=== PATIENT | female | born 1990 | race African-American/Black ===

== ENCOUNTER 2019-10-10 17:20 | Emergency (ER) | payer MEDICAID ==
[~2019-10-10] VITALS: Ht 162.6 cm; Wt 80.0 kg
[2019-10-10] MEDS ORDERED: KETOROLAC 30MG/ML VIAL IV STA (17:34)
[2019-10-10] MEDS ORDERED: SODIUM CHLORIDE 0.9% 1,000 ML IV ONE (17:34)
[2019-10-10] MEDS ORDERED: ONDANSETRON HCL 4MG/2ML INJ IV ONE ×2 (17:45→19:15)
[2019-10-10 17:52] LABS: BASOPHILS % 0.8 % (0.0-2.0); EOSINOPHILS % 0.8 % (0.0-5.0); HEMATOCRIT. 34.1 % (36.0-48.0); HEMOGLOBIN. 11.1 g/dL (12.0-16.0); LYMPHOCYTES % 24.8 % (20.0-50.0); MEAN CORPUSCULAR HEMOGLOBIN 24.8 pg (28.0-32.0); MEAN CORPUSCULAR VOLUME 76.1 fL (81.0-99.0); MEAN PLATELET VOLUME 7.3 fl (7.4-10.4); MONOCYTES % 6.7 % (2.0-8.0); NEUTROPHILS % 66.9 % (40.0-76.0); PLATELET 313 x1000/uL (130-400); RED BLOOD CELL COUNT 4.49 mill/uL (4.2-5.4); RED CELL DISTRIBUTION WIDTH 16.4 % (11.6-14.6)
[2019-10-10 17:56] LABS: CHLORIDE 109 mEq/L (98-107)
[2019-10-10 18:01] LABS: CLARITY URINE CLEAR (CLEAR); COLOR URINE YELLOW (YELLOW); KETONES URINE NEGATIVE (NEGATIVE); LEUKOCYTE ESTERASE URINE TRACE (NEGATIVE); NITRITE URINE NEGATIVE (NEGATIVE); OCCULT BLOOD URINE 2+ (NEGATIVE); PROTEIN URINE NEGATIVE (NEGATIVE); SPECIFIC GRAVITY URINE 1.017 (1.005-1.030)
[2019-10-10 18:06] LABS: HCG SCREEN NEGATIVE
[2019-10-10] MEDS ORDERED: MORPHINE SULFATE 2 MG/ML CPJ (NOT FOR IM USE) IV ONE (19:15)
[2019-10-10 20:02] VITALS: BP 121/74
[2019-10-10] MEDS ORDERED: IOHEXOL-300 100 ML BOTTLE ONE (23:26)
== END 2019-10-10 20:17 | disposition home or self-care (01) ==
LOC: ER 17:52
DX: N13.39 Other hydronephrosis (principal); N20.2 Calculus of kidney with calculus of ureter; J45.909 Unspecified asthma, uncomplicated; Z86.73 Personal history of transient ischemic attack (TIA), and cerebral infarction without residual deficits
CPT/HCPCS: 36415; 74177; 80053; 81003; 81025; 83690; 84703; 85025; 87086; 96361; 96374; 96375; 96376; 99285; J1885; J2270; J2405; J7030; Q9967

== ENCOUNTER 2019-12-30 00:19 | Emergency (ER) | payer MEDICAID ==
[~2019-12-30] VITALS: Ht 162.6 cm; Wt 75.8 kg
[2019-12-30] MEDS ORDERED: SODIUM CHLORIDE 0.9% 1,000 ML IV ONE (01:45)
[2019-12-30] MEDS ORDERED: ONDANSETRON HCL 4MG/2ML INJ IV SCH (01:45)
[2019-12-30] MEDS ORDERED: KETOROLAC 30MG/ML VIAL IV SCH (02:00)
[2019-12-30] MEDS ORDERED: MORPHINE SULFATE 4 MG/ML CPJ (NOT FOR IM USE) IV SCH (02:15)
[2019-12-30 02:57] LABS: BASOPHILS % 0.1 % (0.0-2.0); EOSINOPHILS % 0.1 % (0.0-5.0); HEMATOCRIT. 29.6 % (36.0-48.0); HEMOGLOBIN. 9.5 g/dL (12.0-16.0); LYMPHOCYTES % 16.9 % (20.0-50.0); MEAN CORPUSCULAR HEMOGLOBIN 24.3 pg (28.0-32.0); MEAN CORPUSCULAR VOLUME 75.7 fL (81.0-99.0); MEAN PLATELET VOLUME 7.1 fl (7.4-10.4); MONOCYTES % 6.4 % (2.0-8.0); NEUTROPHILS % 76.5 % (40.0-76.0); PLATELET 255 x1000/uL (130-400); RED BLOOD CELL COUNT 3.91 mill/uL (4.2-5.4); RED CELL DISTRIBUTION WIDTH 15.9 % (11.6-14.6)
[2019-12-30 03:00] LABS: CHLORIDE 111 mEq/L (98-107)
[2019-12-30 03:37] LABS: CLARITY URINE TURBID (CLEAR); COLOR URINE YELLOW (YELLOW); KETONES URINE NEGATIVE (NEGATIVE); LEUKOCYTE ESTERASE URINE NEGATIVE (NEGATIVE); NITRITE URINE NEGATIVE (NEGATIVE); OCCULT BLOOD URINE 3+ (NEGATIVE); PROTEIN URINE 1+ (NEGATIVE); SPECIFIC GRAVITY URINE 1.036 (1.005-1.030); UROBILINOGEN URINE 0.2 E.U./dL (0.2-1.0)
[2019-12-30] MEDS ORDERED: KETOROLAC 30MG/ML VIAL IV ONE (04:45)
[2019-12-30 04:54] VITALS: BP 123/60
== END 2019-12-30 06:08 | disposition home or self-care (01) ==
LOC: ER 00:19
DX: N13.2 Hydronephrosis with renal and ureteral calculous obstruction (principal); Z82.49 Family history of ischemic heart disease and other diseases of the circulatory system; Z88.0 Allergy status to penicillin
CPT/HCPCS: 36415; 74176; 80053; 81003; 85025; 93005; 96361; 96374; 96375; 96376; 99285; J1885; J2270; J2405

== ENCOUNTER 2020-07-07 13:17 | Emergency (ER) | payer MEDICAID ==
[~2020-07-07] VITALS: Ht 167.6 cm; Wt 75.0 kg
[2020-07-07 13:55] VITALS: BP 138/99
== END 2020-07-07 15:41 | disposition home or self-care (01) ==
LOC: ER 13:38
DX: L51.9 Erythema multiforme, unspecified (principal); R21 Rash and other nonspecific skin eruption; J02.9 Acute pharyngitis, unspecified; Z88.0 Allergy status to penicillin
CPT/HCPCS: 99281

== ENCOUNTER 2020-11-20 12:13 | Emergency (ER) | payer OTHER, MEDICAID ==
[~2020-11-20] VITALS: Ht 162.6 cm; Wt 75.0 kg
[2020-11-20 12:22] VITALS: BP 134/112
[2020-11-20] MEDS ORDERED: ONDANSETRON 4MG ODT PO ONE (14:00)
[2020-11-20] MEDS ORDERED: HYDROCODONE/ACETAMINOPHEN 5/325MG TABLET PO ONE (14:00)
[2020-11-20 14:53] LABS: CLARITY URINE CLEAR (CLEAR); COLOR URINE YELLOW (YELLOW); KETONES URINE TRACE (NEGATIVE); LEUKOCYTE ESTERASE URINE NEGATIVE (NEGATIVE); NITRITE URINE NEGATIVE (NEGATIVE); OCCULT BLOOD URINE NEGATIVE (NEGATIVE); PH URINE 5.5 (4.5-8.0); PROTEIN URINE NEGATIVE (NEGATIVE); SPECIFIC GRAVITY URINE 1.022 (1.005-1.030); UROBILINOGEN URINE 0.2 E.U./dL (0.2-1.0)
[2020-11-20] MEDS ORDERED: CEFTRIAXONE SODIUM 500 MG/VIAL IM ONE (15:45)
[2020-11-20] MEDS ORDERED: LIDOCAINE HCL 1% 20ML VIAL (Pyxis) INJ INFIL ONE (15:45)
[2020-11-20] MEDS ORDERED: ONDA4TAB5 MT (15:50)
[2020-11-20] MEDS ORDERED: METR-167 MT (15:50)
[2020-11-20] MEDS ORDERED: HYDR-4001 MT (15:50)
[2020-11-20] MEDS ORDERED: DOXY100T2 MT (15:50)
[2020-11-23 04:07] LABS: NEISSERIA GONORRHOEAE NAA Negative (Negative)
== END 2020-11-20 16:45 | disposition home or self-care (01) ==
LOC: ER 12:13
DX: R10.2 Pelvic and perineal pain (principal); N83.202 Unspecified ovarian cyst, left side; I51.7 Cardiomegaly; Z88.0 Allergy status to penicillin
CPT/HCPCS: 76830; 76856; 81003; 81025; 87491; 87591; 96372; 99284; J0696; J3490

== ENCOUNTER 2022-08-25 08:12 | Emergency (ER) | payer MEDICAID, OTHER ==
[~2022-08-25] VITALS: Ht 162.6 cm; Wt 76.0 kg
[~2022-08-25 08:12] MED LIST: DOXY100T2 MT; HYDR-4001 MT; METR-167 MT; ONDA4TAB5 MT
[2022-08-25 08:25] VITALS: BP 136/78; PULSE 89; RESP 16; TEMP 98
[2022-08-25] MEDS ORDERED: IBUP-2029 MT (10:39)
[2022-08-25] MEDS ORDERED: IBUPROFEN 400MG TABLET PO NR (11:15)
[2022-08-25] MEDS ORDERED: IBUPROFEN 800MG TABLET PO ONE (11:15)
== END 2022-08-25 12:01 | disposition home or self-care (01) ==
LOC: ER 08:12
DX: S93.401A Sprain of unspecified ligament of right ankle, initial encounter (principal); W10.1XXA Fall (on)(from) sidewalk curb, initial encounter; Y93.89 Activity, other specified; Y92.89 Other specified places as the place of occurrence of the external cause; Y99.8 Other external cause status
CPT/HCPCS: 73600; 81025; 99283; Z7610